=== PATIENT | male | born 1975 | race Caucasian/White ===

== ENCOUNTER 2016-08-18 09:14 | Day surgery (SDC) | payer BC ==
[~2016-08-18 09:14] MED LIST: ACETAMINOPHEN 500 MG TABLET PO PRN; HYDROmorphone HCL 2 MG/ML VIAL IV PRN; MAG HYDROX/ALUMINUM HYD/SIMETH 30 ML UDC PO PRN; MAGNESIUM HYDROXIDE 30 ML UDC PO PRN; ONDANSETRON HCL/PF 2 MG/ML VIAL IV PRN; PROMETHAZINE HCL 25 MG in DEXTROSE 5 % IN WATER 50 ML IV PRN; RINGERS SOLUTION,LACTATED 1,000 ML IV PRN; ROPIVACAINE HCL/PF 40 MG in NORMAL SALINE 16 ML IJ PRN; ZOLPIDEM TARTRATE 5 MG TABLET PO PRN; ceFAZolin SODIUM 1 GM VIAL IV PRN; diphenhydrAMINE HCL 50 MG/ML VIAL IV PRN; oxyCODONE HCL/ACETAMINOPHEN 1 TAB TABLET PO PRN
--- OUTSIDE RECORDS SUMMARY | 2016-08-18 09:19 | XMS REPORT | Continuity of Care Document ---
:1975 Author Organization [facility] ([facility]) Address [address] [place] [address] Phone [phone] Care Team Providers Name Role Phone Shala Santana Primary Care Provider [phone] Source Comments This disclosure is being made pursuant to the Care Everywhere program, applicable federal and state laws, and may not contain all informaitonavailable regarding this patient.[facility] ([facility]) Active Allergies and Adverse Reactions No Known Allergies Current Medications Prescription Sig. Disp. Refills Start Date End Date Status hydrochlorothiazide 12.5 Take 1 90 capsule 4 07/10/2015 Active mg capsule capsule (12.5 mg total) by mouth daily pantoprazole 40 mg EC Take 1 tablet 90 tablet 3 10/31/2015 Active tablet (40 mg total) by mouth daily. sildenafil (VIAGRA) 25 mg Take 1 hour 6 tablet 1 04/01/2016 Active tablet prior to sexual activity. VITAMIN D2 50,000 unit Take 1 0 06/01/2016 Active capsule capsule by mouth as instructed. weekly amLODIPine-benazepril 5-20 Take 1 5 06/24/2016 Active mg per capsule capsule by mouth daily. Active Problems Problem Noted Date Chest pain, unspecified 12/28/2014 Overview: Formatting of this note may be different from the original. CARDIOVASCULAR PROCEDURES STRESS TESTS: [facility] (The stress echo results were normal.The stress echo results were normal. ) - 10/06/2011 Hypertension Most Recent Encounters Date Type Specialty Providers Description 08/11/2016 Refill Cardiac Rehabilitation Blanca Hinton MD Chief Comp: Medications Refill 07/13/2016 Office Visit Heart and Vascular Blanca Hinton MD Dx: Essential hypertension (Primary Dx) Social History Tobacco Use Types Packs/Day Years Used Date Never Smoker Last Filed Vital Signs Vital Sign Reading Time Taken Blood Pressure 142/84 07/13/2016 11:02 AM FINANCIAL SERVICES ASSISTANT Pulse 82 07/13/2016 11:02 AM FINANCIAL SERVICES ASSISTANT Temperature - - Respiratory Rate - - Height 1.778 m (5' 10") 07/13/2016 11:02 AM FINANCIAL SERVICES ASSISTANT Weight 96.072 kg (211 lb 12.8 oz) 07/13/2016 11:02 AM FINANCIAL SERVICES ASSISTANT Body Mass Index 30.39 07/13/2016 11:02 AM FINANCIAL SERVICES ASSISTANT Oxygen Saturation - - Plan of Care Health Maintenance Due Date Last Done Comments Hepatitis B Vaccine (1 of 3 - Primary Series) 1975 Tdap Vaccine 1987 Lipid Disorder Screening 1994 MMR Vaccine 1994 Td Vaccine 1994 Influenza Vaccine: Seasonal (#1) 02/02/2016 Results from Last 3 Months Not on file
[2016-08-18] MEDS ORDERED: BUPIVACAINE HCL/EPINEPHRINE 10 ML VIAL IJ ONE (10:05)
--- NOTE | 2016-08-18 10:38 | OR ---
Operative Report - Dictated Report Narrative: Date: 08/18/2016 Physician: lOi Bonilla M.D. [place] Technician: Duane Greene PA-C Preoperative diagnosis: Left Knee medial meniscus tear Postoperative diagnosis: Left Knee medial meniscus tear Procedure: Left knee arthroscopy with partial medial meniscectomy, Anesthesia: MAC Plus local Complications: None Estimated blood loss: Minimal Tourniquet time: None Specimens: None Retained implants: None Drains: None Indications: Mr. Garcia Is a 41 year-old male who has been followed in my clinic with complaints of knee pain consistent with suspected medial joint pathology. Physical exam and diagnostic imaging were consistent with these complaints and concern for medial meniscus pathology. Conservative measures have failed including, but not limited to, passage of time, activity modification, medications, and injections. The risks, benefits, and alternatives were discussed in clinic. The risks being , bleeding, infection, blood clots, nerve, tendon, ligament, blood vessel injury, persistent pain, arthrosis, need for additional procedures, and persistent symptoms. Consent was obtained in the clinic. Procedure: After marking the correct extremity in the preoperative holding area, a timeout was performed in the operating room. IV antibiotics consisting of Ancef were administered prior to the procedure. A well-padded tourniquet was applied to the operative upper thigh. The leg was prepped and draped in a standard sterile fashion. 0.5% Marcaine with epinephrine was infused into the projected portal sites as well as the intra-articular space. A tere incision was made for inferior lateral portal. A blunt trocar and cannula was introduced into the knee. The suprapatellar pouch revealed no pathology. The medial patella facet showed no arthrosis. The lateral patella facet showed no arthrosis. The trochlea showed no arthrosis. The medial gutter revealed a small marginal chondral flap but no large periarticular osteophytes. The medial joint space was then entered utilizing a lateral post and valgus stress. A spinal needle was utilized for guidance into placement of an anterior medial portal. This was placed just superior to the medial meniscus ensuring that we could reach the posterior aspect of the medial joint space. A tere incision was made in the site, and the probe was introduced to the knee. The medial joint space was examined, and the medial femoral condyle showed approximately 2 cm area of grade 3 change without any loose chondral edges on the weightbearing surface. The medial tibial plateau showed grade 2-3 change. The medial meniscus had a complex tear at the junction of the anterior and posterior one half the meniscus. This was easily mobilized and the joint and started from the root and extended to the midportion of the meniscus. It was anchored anteriorly and flipped parrot-beak type fashion. This involved approximately 60-70% of the posterior depth up to approximately 50% of the anterior. The notch was then examined, and the ACL was noted to be intact. The PCL was noted to be intact. The lateral joint space was then examined using a varus force in the figure 4 position. Lateral femoral condyle showed North arthrosis. Lateral tibial plateau showed a small fissure. The lateral meniscus showed no tear. The lateral gutter showed the pathology. Having identified the surgical pathology, a series of biters and flip were utilized in order to debride the medial meniscus down to stable margin. This involved approximately 50% of the circumference approximately 50-70% of the depth. Once it was felt that we adequately addressed the pathology, the knee was thoroughly irrigated. The fluid was evacuated ensuring that we have removed all meniscal, chondral, and any other loose bodies. A final evaluation of the joint showed no additional pathology. The fluid was then evacuated of the knee, and the trocar and camera were removed from the joint. The wounds were closed with interrupted nylon after placing 20 mL of 0.2% ropivacaine into the joint. Dressings consisting of Xeroform, 4 x 4, ABD, soft roll, and an Dong were applied. All sponge, needle, blade, and instrument counts were correct prior to closing the wounds. The patient was awoken and transferred to the postanesthesia care unit in stable condition.
[2016-08-18 11:57] VITALS: BP 143/84
[2016-08-18] MEDS ORDERED: SENNOSIDES/DOCUSATE SODIUM 1 TAB TABLET PO SCH (21:00)
== END 2016-08-18 09:15 | disposition home or self-care (01) ==
LOC: AMB 09:14
PROVIDERS: ATTEND Orthopaedic Surgery
PROC: 0SBD4ZZ Excision of Left Knee Joint, Percutaneous Endoscopic Approach (ICD-10-PCS; principal; 2016-08-18 11:15)
DX: M23.212 Derangement of anterior horn of medial meniscus due to old tear or injury, left knee (principal); M23.222 Derangement of posterior horn of medial meniscus due to old tear or injury, left knee; I10 Essential (primary) hypertension; E78.5 Hyperlipidemia, unspecified; K21.9 Gastro-esophageal reflux disease without esophagitis; F32.9 Major depressive disorder, single episode, unspecified; Z68.30 Body mass index [BMI] 30.0-30.9, adult

== ENCOUNTER 2017-02-02 09:33 | Emergency (ER) | payer BC ==
[2017-02-02] MEDS ORDERED: ASPIRIN 81 MG TAB.CHEW ONE (09:54)
[2017-02-02] MEDS ORDERED: NITROGLYCERIN 0.4 MG/TAB BTL SL PRN (10:02)
[2017-02-02] MEDS ORDERED: ASPIRIN 81 MG TAB.CHEW PO ONE (10:02)
[2017-02-02] MEDS ORDERED: NITROGLYCERIN 0.4 MG/TAB BTL SL ONE (10:04)
--- NOTE | 2017-02-02 10:04 | ERNOTE ---
Chest Pain/Cardiac HPI Time Seen by Provider: 02/02/17 09:50 Source: patient Exam Limitations: no limitations Allergies/Adverse Reactions: Allergies No Known Allergies Allergy (Verified 02/02/17 10:08) Home Medications: HOME MEDICATIONS Hydrochlorothiazide 12.5 mg PO DAILY 07/16/13 [Last Taken Unknown] amLODIPine BESYLATE [Norvasc (Amlodipine)] 5 mg PO DAILY 07/16/13 [Last Taken ] Diltiazem HCl [Diltiazem ER] 360 mg PO DAILY 08/05/16 [Last Taken Unknown] Pantoprazole Sodium 40 mg PO DAILY 08/05/16 [Last Taken Unknown] Narrative: Patient had a sharp chest pain about six days ago. Last night started with central chest ache, radiating to left shoulder, nausea at some point, slight shortness of breath, hands clammy at some point. Pain has not resolved, currently 11/10 Date (Duration): 02/01/17 Time (Timing): 23:30 Severity/Quality: aching Chest Pain Radiation: shoulders Activities at Onset: rest Modifying Factors - Worsens: Present: exercise Nitro Today/Relief: no nitro taken today Aspirin Treatment Today: no aspirin today Associated Symptoms: Present: headache, dizziness, shortness of breath, nausea Prior Chest Pain/Cardiac Workup: Denies: heart attack Prior Treatment: Denies: recently seen Review of Systems - Review of Systems Constitutional: Present: chills. Absent: recent illness, fever ENT: Absent: nose congestion, sore throat Respiratory: Present: shortness of breath Cardiology: Present: chest pain Gastrointestinal/Abdominal: Present: nausea. Absent: vomiting, diarrhea, abdominal pain Genitourinary: Present: no symptoms reported Skin: Absent: rash Neurological: Present: headache - slight - Patient's Past Medical History Patient History - Medical: Depression, GERD Patient History - Cardiac/Respiratory: Hypertension, Other Patient History - Cancer: No Hx of Cancer Patient History - Surgical Procedures: Other Patient History - Other: None - Family History Father Family History - Medical: , No pertinent hx Family History - Cardiac/Respiratory: Aneurysm, Other Family History - Cancer: No pertinent family hx Mother Family History - Medical: No pertinent hx Family History - Cardiac/Respiratory: No pertinent hx Family History - Cancer: No pertinent family hx Sister Family History - Medical: Other Family History - Cardiac/Respiratory: No pertinent hx Family History - Cancer: No pertinent family hx - Social History Living Situations: home Abuse History: No History of abuse Psych History: Hx of Depression Alcohol Use: occasionally Drug Use: none Physical Exam - Physical Exam General Appearance: Present: wd/wn, alert, anxious Eye Exam: Normal inspection: bilateral Ears, Nose, Throat: Present: normal pharynx Respiratory: Present: no respiratory distress, normal breath sounds, no accessory muscle use, lungs clear Cardiovascular/Chest: Present: regular rate, rhythm, no murmur Gastrointestinal/Abdominal: Present: normal bowel sounds, nontender, nondistended, soft Extremity Exam: Present: no edema Neurological Exam: Present: alert, oriented, normal mood/affect Skin Exam: Present: normal color, warm/dry ED Progress - Results and Orders Patient's Lab Results:: I have reviewed the patient's lab results. - Vital Signs Patient's Vital Signs:: I have reviewed the patient's vital signs. - EKG EKG: NSR, RBBB, changed from - no block 2013 EKG read: Interp. by me - X-Ray X-Ray #1 X-Ray: chest - no acute Interpretation: Reviewed by me - Progress/Reassessment Progress Note-Subjective: 02/02/17 10:16 patient refuses nitro, explained that it would improve blood flow to heart muscle, still refuses 02/02/17 10:49 pain 09/10 discussed test results (including change in EKG from 2013) and limitations of test to rule out CAD, offered admission,patient refused, understands risk of PR and dying Departure - Departure Clinical Impression: Chest pain Qualifiers: Chest pain type: precordial pain Qualified Code(s): R07.2 - Precordial pain Disposition: Home self-care Condition: Good Instructions: Form - Excuse from Work, School, or Physical Activity, Chest Pain Observation Additional Instructions: take a daily aspirin, call Dr Hinton for follow up, return to the ER at any time for any worsening chest pain Referrals: Shala Santana FNP [Primary Care Provider] - Blanca Hinton MD [Associate] -
[2017-02-02 10:20] LABS: Hematocrit 43.2 % (42.0-52.0); Hemoglobin 15.2 gm/dL (13.5-18.0); Mean Cell Volume 89.4 fl (78-100); Mean Corpuscular Hemoglobin 31.5 pg (27-31); Mean Corpuscular Hgb Conc 35.2 g/dl (32-36); Mean Platelet Volume 9.2 fl (6.0-9.5); Neutrophil # 4.1 K/mm3 (1.3-6.0); Neutrophil % 67.3 % (42-75.0); Platelet Count 296 K/mm3 (150-450); Red Blood Count 4.83 M/mm3 (4.7-6.0); Red Cell Distribution Width 12.6 % (11.5-14.0); White Blood Count 6.1 K/mm3 (4.0-10.5)
[2017-02-02 10:29] LABS: Prothrombin Time (Patient) 10.4 Seconds (9.4-11.4)
[2017-02-02 10:30] LABS: Partial Thrombolplastin Time 27.3 Seconds (24-32)
[2017-02-02 10:37] LABS: ALT 19 U/L (19-67); AST 15 U/L (0-48); Albumin * 3.7 gm/dl (3.4-5.0); Alkaline Phosphatase * 77 U/L (50-170); Anion Gap 10.5 mmol/L (6.8-13.8); Bilirubin, Total 0.9 mg/dL (0.0-1.1); Blood Urea Nitrogen 20 mg/dL (6-23); Ca. Corrected For Albumin 8.5 mg/dL (8.4-10.2); Calcium * 8.6 mg/dL (7.9-10.9); Chloride 104 mmol/L (97-106); Glucose * 122 mg/dL (70-110); Potassium 4.5 mmol/L (3.4-4.6); Sodium 137 mmol/L (132-142); Total Protein 7.1 gm/dL (6.2-8.2)
[2017-02-02 10:38] LABS: Troponin I Less than 0.017 ng/ml (0.00-0.10)
[2017-02-02 11:09] VITALS: BP 148/87
== END 2017-02-02 11:11 | disposition home or self-care (01) ==
LOC: ER 09:33
DX: R07.2 Precordial pain (principal); F32.89 Other specified depressive episodes; K21.9 Gastro-esophageal reflux disease without esophagitis; I10 Essential (primary) hypertension; Z53.29 Procedure and treatment not carried out because of patient's decision for other reasons